=== PATIENT | female | born 1990 | race Caucasian/White ===

== ENCOUNTER 2016-12-23 03:32 | Inpatient (IN) | payer BC, MEDICAID ==
[2016-12-23 04:00] VITALS: BMI 45.3
[2016-12-23] MEDS ORDERED: LACTATED RINGERS 1,000 ML IV PRN (05:30)
[2016-12-23] MEDS ORDERED: OXYTOCIN IN LR 500 ML IV ONE ×2 (05:30→05:54)
[2016-12-23] MEDS ORDERED: LIDOCAINE Viscous 2% 15 ML UDCUP ONE (05:54)
[2016-12-23] MEDS ORDERED: LACTATED RINGERS 1,000 ML ONE (05:54)
[2016-12-23] MEDS ORDERED: MINERAL OIL 25 ML BOT ONE (05:54)
[2016-12-23] MEDS ORDERED: LIDOCAINE 1% (PRES FREE) 30 ML VIAL ONE (05:54)
[2016-12-23] MEDS ORDERED: IV START KIT ONE (05:54)
[2016-12-23] MEDS ORDERED: PUMP TUBING ONE (05:54)
[2016-12-23] MEDS ORDERED: OXYTOCIN 10 UNITS/ML VIAL ONE (05:54)
[2016-12-23] MEDS ORDERED: Sodium Chloride 0.9% 10 ML ONE (05:55)
[2016-12-23 07:21] LABS: HEMATOCRIT 41.8 % (37.0-47.0); HEMOGLOBIN 14.4 gm/l (12.0-16.0); MEAN CELL VOLUME 88.6 fl (81.0-99.0); MEAN CORPUSCULAR HEMOGLOBIN 30.5 pg (27.0-31.0); MEAN CORPUSCULAR HGB CONC 34.4 g/dl (33.0-37.0); RED CELL DISTRIBUTION WIDTH 13.2 % (11.5-14.5)
[2016-12-23] MEDS ORDERED: EPIDURAL PUMP SET ONE (07:23)
[2016-12-23] MEDS ORDERED: FENTANYL/ROPIVACAINE EPIDURAL 0 ML EP ONE (07:23)
[2016-12-23] MEDS ORDERED: EPIDURAL PROCEDURE TRAY ONE (09:14)
[2016-12-23] MEDS ORDERED: EPHEDRINE SULFATE 50 MG/ML 1ML VIAL ONE (09:14)
[2016-12-23] MEDS ORDERED: DOCUSATE SODIUM 100 MG CAPSULE PO PRN (10:11)
[2016-12-23] MEDS ORDERED: LANOLIN 50 APPLIC/7G TUBE TP PRN (10:11)
[2016-12-23] MEDS ORDERED: HYDROCODONE/ACETAMINOPHEN 5/325MG TABLET PO PRN (10:11)
[2016-12-23] MEDS ORDERED: BENZOCAINE/MENTHOL 60 APPLIC/BOT TP PRN (10:11)
--- NOTE | 2016-12-23 10:18 | PCMDEL ---
Delivery Note - Labor 1st stage (hr/min):: 4 hr / 57 min 2nd stage (hr/min):: 1 hr/ 19 min 3rd stage (hr/min):: 0 hr/ 7 min Total (hr/min):: 6 hr/ 23 min Pushed (hr/min):: 0 hr/ 40 min - Delivery Delivery (Date): 12/23/16 Delivery (Time): 09:36 Infant Gender: Female Presentation: Cephalic Umbilical Cord: 3 Vessel, Nuchal Cord (times 2, loose for delivery through) Delayed Cord Clamping:: > 3 min 1 Minute Total: 9 5 Minute Total: 9 Placenta:: complete and spontaneous EBL:: 250 ml Perineum:: intact Anesthesia/Meds:: Epdural - complication with test dose into maternal circulationand hypotens Length ROM:: 1 hr/ 26 min Comments:: 26 yr old G2 now P2 at 39 2/7 weeks who presented in labor today with onset about 0320. Epidural for pain control was given at about 0753 with result of maternal hypotension, severe. This was treated with ephedrine and IV fluids increase. During the hypotension heart rate was 60's-80's until maternal blood pressure recovered. Then heart rate returned to category I. occurred over intact perineum with APGARS 9, 9 at 0936. There was a double nuchal cord, not reduced until after infant's delivery.
[2016-12-23] MEDS: OXYCODONE HCL 5 MG TABLET PO PRN ×2 (10:20→15:49)
[2016-12-23] MEDS: IBUPROFEN 800 MG TABLET PO PRN ×2 (10:20→19:37)
[2016-12-24] MEDS: OXYCODONE HCL 5 MG TABLET PO PRN ×2 (00:40→08:13)
[2016-12-24 06:59] LABS: HEMOGLOBIN 11.8 gm/l (12.0-16.0)
[2016-12-24] MEDS: IBUPROFEN 800 MG TABLET PO PRN ×3 (07:05→22:07)
--- NOTE | 2016-12-24 08:43 | PDOC44 ---
- Subjective Day: 1 Reports Pain Tolerable, Reports , Reports Lochia Light - Objective Temp Pulse Resp BP Pulse Ox 97.4 F 95 18 122/75 12/24/16 08:14 12/24/16 08:14 12/24/16 01:20 12/24/16 08:14 Lab Results 12/24/16 06:05 Hgb 11.8 L D Hct 35.0 L Current Medications Generic Name Dose Route Start Last Admin Trade Name Freq PRN Reason Stop Dose Admin Acetaminophen/Hydrocodone Bitart 1 - 2 tab 12/23/16 10:11 Kouts 5/325 PO Q4H PRN Pain (Moderate) Benzocaine/Menthol 1 applic 12/23/16 10:11 Dermoplast TP PRN PRN Patient Comfort Docusate Sodium 100 mg 12/23/16 10:11 Colace PO DAILY PRN Comfort Emollient Ointment 1 applic 12/23/16 10:11 Dxy-I-Mlcvij TP PRN PRN sore nipples Ibuprofen 800 mg 12/23/16 10:11 12/24/16 07:05 Motrin PO 800 mg Q6H PRN Administration Pain (Mild) Oxycodone HCl 5 - 10 mg 12/23/16 10:11 12/24/16 08:13 Roxicodone PO 5 mg Q3H PRN Administration Pain (Severe) Sodium Chloride 10 ml 12/23/16 10:11 Normal Saline 10ml Flush IV PRN PRN IV Flush Sodium Chloride 10 ml 12/23/16 17:00 12/24/16 07:11 Normal Saline 10ml Flush IV Not Given Q8HR ONELIA - Physical Exam General: Afebrile Psych/Mental Status: Mood/Affect Appropriate, Judgment/Insight Intact, Bonding Well Neurological: Grossly Intact, Alert, Oriented x 4, Normal Gait, Normal Speech, Normal Reflexes, Cranial Nerves 3-12 Intact HEENT: Atraumatic, PERRLA, EOMI Lungs: Clear to Auscultation Bilaterally, Normal Air Movement Cardiovascular: Regular Rate and Rhythm, Normal S1, Normal S2 Breast: Skin intact Fundus: Firm, Below Umbilicus Abdomen: Normal Bowel Sounds Lochia: Light Rectal Exam: Deferred Extremities: Full ROM, Normal Cap Refill, Normal Pulses Skin: Normal Color, Warm, Dry, Intact - Problems:Assessment/Plan (1) Normal vaginal delivery Status: Acute Disposition: Anticipate DC to Home (either later today or tomorrow)
[2016-12-25] MEDS: IBUPROFEN 800 MG TABLET PO PRN (04:31)
--- NOTE | 2016-12-25 08:13 | PDOC39B ---
Hospital Course: ADMIT DATE: 12/23/16 DISCHARGE DATE: 12/25/2016 ADMISSION DIAGNOSES: Labor PROCEDURES: Normal spontaneous vaginal delivery HISTORY OF PRESENT ILLNESS: 26 year old G2 T1 L1 at 39 weeks 2 days presenting with onset of active labor. HOSPITAL COURSE: The patient progressed to . There was an epidural complication of severe maternal hypotension accompanied by deceleration which corrected with successful treatment of the mother's hypotension. By day of discharge the patient is ambulating, eating, voiding, and passing flatus without difficulty. Pain is controlled and lochia is appropriate. She is . - Physical Exam Vital Signs: Temp Pulse Resp BP Pulse Ox 98.0 F 80 18 139/89 12/25/16 03:00 12/25/16 03:00 12/25/16 03:00 12/25/16 03:00 General: Afebrile Psych/Mental Status: Mood/Affect Appropriate, Judgment/Insight Intact, Bonding Well Neurological: Grossly Intact, Alert, Oriented x 4, Normal Gait, Normal Speech, Normal Reflexes, Cranial Nerves 3-12 Intact HEENT: Atraumatic, PERRLA, EOMI, Mucous membr. moist/pink Lungs: Clear to Auscultation Bilaterally, Normal Air Movement Cardiovascular: Regular Rate and Rhythm, Normal S1, Normal S2 Breast: Soft, Nipples Intact Fundus: Firm, Below Umbilicus Abdomen: Normal Bowel Sounds Lochia: Light Rectal Exam: Deferred Extremities: Full ROM, Normal Cap Refill, Normal Pulses Skin: Normal Color, Warm, Dry, Intact - Discharge Diagnosis (1) Normal vaginal delivery Status: Acute Assessment/Plan: Discharging home with infant today. - Discharge Plan Condition: Good Disposition: Home Additional Instructions: Vaginal rest times 6 weeks. Normal diet. Follow up with Dr. Childers on 2016 at 13:15 for 6 week check up. Prescriptions: Docusate Sodium [COLACE 100 MG CAPSULE (SHF)] 100 mg PO DAILY PRN #30 capsule PRN Reason: Comfort Ibuprofen [IBUPROFEN 800 MG TABLET (SHF)] 800 mg PO Q6H PRN #90 tablet PRN Reason: Pain (Mild) Pnv No.122/Iron/Folic Acid [ Multi Tablet] 1 each PO DAILY #100 tablet Follow-Up: [facility] [Outside] - In 2-3 days Teresita Childers MD [Primary Care Provider] - 01/31/17 1:15 pm
[2016-12-25 09:06] VITALS: BP 123/74
[2016-12-25] MEDS ORDERED: IV START KIT ONE (21:30)
== END 2016-12-25 12:55 | disposition home or self-care (01) | DRG 775 ==
LOC: FBCOUT 03:32 → FBC 03:32 → FBCOUT 05:30 → FBC 05:30
PROVIDERS: ADMIT Family Medicine; ATTEND Family Medicine
PROC: 10E0XZZ Delivery of Products of Conception, External Approach (ICD-10-PCS; principal; 2016-12-23)
DX: O75.89 Other specified complications of labor and delivery (principal); I95.9 Hypotension, unspecified; O69.81X0 Labor and delivery complicated by cord around neck, without compression, not applicable or unspecified; O76 Abnormality in fetal heart rate and rhythm complicating labor and delivery; Z3A.39 39 weeks gestation of pregnancy; Z37.0 Single live birth